=== PATIENT | male | born 1960 | race Caucasian/White ===

== ENCOUNTER 2019-06-30 12:25 | Emergency (ER) | payer OTHER ==
[~2019-06-30] VITALS: Ht 185.4 cm; Wt 75.0 kg
[2019-06-30] MEDS ORDERED: SODIUM CHLORIDE 0.9% 1,000 ML IV ONE (13:24)
[2019-06-30] MEDS ORDERED: LORAZEPAM 0.5MG TABLET PO ONE (13:30)
[2019-06-30] MEDS ORDERED: NICOTINE 7MG PATCH TD ONE (13:30)
[2019-06-30 13:36] VITALS: BP 123/77
[2019-06-30 14:09] LABS: BASOPHILS % 0.5 % (0.0-2.0); EOSINOPHILS % 4.2 % (0.0-5.0); HEMATOCRIT. 43.7 % (42.0-52.0); HEMOGLOBIN. 15.2 g/dL (14.0-18.0); LYMPHOCYTES % 30.7 % (20.0-50.0); MEAN CORPUSCULAR VOLUME 94.7 fL (80.0-94.0); MEAN PLATELET VOLUME 10.7 fl (7.4-10.4); MONOCYTES % 6.2 % (2.0-8.0); NEUTROPHILS % 58.4 % (40.0-76.0); PLATELET 147 x1000/uL (130-400); RED BLOOD CELL COUNT 4.62 mill/uL (4.7-6.1); RED CELL DISTRIBUTION WIDTH 13.7 % (11.6-14.6)
[2019-06-30 14:10] LABS: CHLORIDE 104 mEq/L (98-107)
[2019-06-30 14:17] LABS: CLARITY URINE CLEAR (CLEAR); COLOR URINE YELLOW (YELLOW); KETONES URINE NEGATIVE (NEGATIVE); LEUKOCYTE ESTERASE URINE TRACE (NEGATIVE); NITRITE URINE NEGATIVE (NEGATIVE); OCCULT BLOOD URINE NEGATIVE (NEGATIVE); PROTEIN URINE NEGATIVE (NEGATIVE); SPECIFIC GRAVITY URINE 1.023 (1.005-1.030)
== END 2019-06-30 15:08 | disposition home or self-care (01) ==
LOC: ER 12:44
DX: F41.1 Generalized anxiety disorder (principal)
CPT/HCPCS: 36415; 80053; 81003; 85025; 93005; 96360; 99284; J7030; 99283